=== PATIENT | female | born 1990 | race Caucasian/White ===

== ENCOUNTER 2016-05-28 19:33 | Emergency (ER) | payer MEDICAID ==
[~2016-05-28] VITALS: Ht 180.3 cm; Wt 72.6 kg
[2016-05-28 19:51] VITALS: BP 112/73
[2016-05-28] MEDS ORDERED: DiphenhydrAMINE 50mg/ml Inj IM ONE (20:30)
[2016-05-28] MEDS ORDERED: Metoclopramide 10mg/2ml Inj IM ONE (20:30)
[2016-05-28] MEDS ORDERED: Ketorolac 30mg Inj IM ONE (20:30)
[2016-05-28 21:11] VITALS: BP 119/73
--- NOTE | 2016-05-28 22:54 | Emergency Room Report ---
History of Present Illness General Chief Complaint: Headache Source: Patient Present Illness HPI The patient is a 25-year-old female presenting for migraine headaches. The patient states she has a history of migraine headaches and this feels the same but worse. She has tried Motrin and Tylenol at home which have not helped. Pain is described as a 5/10 sharp sensation to the entire head with nausea. Patient also has some photophobia. Pain is relieved with closing her eyes. The patient denies any other symptoms including neck pain or stiffness, vomiting , dizziness, blurred vision, fever, chills Allergies: Coded Allergies: No Known Allergies (Unverified , 05/28/16) Patient History Past Medical History: see triage record Pertinent Family History: none Last Menstrual Period: 01/01/15 Now: No Reviewed Nursing Documentation: PMH: Agreed, PSxH: Agreed Review of Systems All Other Systems: negative except mentioned in HPI Physical Exam Vital Signs Date Time Temp Pulse Resp B/P Pulse Ox O2 Delivery O2 Flow Rate FiO2 05/28/16 19:39 98.1 74 14 119/73 100 Room Air Sp02 EP Interpretation: reviewed, normal General Appearance: no apparent distress, alert, GCS 15, non-toxic Head: normocephalic, atraumatic Eyes: bilateral eye PERRL, bilateral eye normal inspection ENT: hearing grossly normal, normal pharynx, no angioedema, normal voice Neck: full range of motion, no bony tend, supple/symm/no masses Musculoskeletal: back normal, gait/station normal, normal range of motion, non- tender Neurologic: alert, oriented x3, responsive, motor strength/tone normal, sensory intact, speech normal Psychiatric: judgement/insight normal, memory normal, mood/affect normal, no suicidal/homicidal ideation Skin: normal color, no rash, warm/dry, well hydrated Lymphatic: no adenopathy Medical Decision Making PA Attestation Dr. Mccain is my supervising physician. Patient management was discussed with my supervising physician Diagnostic Impression: Primary Impression: Migraine headache Qualified Codes: G43.919 - Migraine, unspecified, intractable, without status migrainosus ER Course The patient is a 25-year-old female presenting for migraine headaches. Differential diagnoses include but not limited to Migraine, tension headache, cluster FARIAS, anxiety PE: No apparent distress. A&Ox4 PERRL. EOMI. Head NC/AT Normal mentation. RRR. No MRG Skin is warm and dry, no rashes. The patient is given IM Toradol, Reglan, and Benadryl and is feeling better. She will be discharged home and needs to followup with PMD and possibly neurologist if symptoms continue. ER precautions are give Last Vital Signs Date Time Temp Pulse Resp B/P Pulse Ox O2 Delivery O2 Flow Rate FiO2 05/28/16 21:11 98.1 14 119/73 100 Room Air 05/28/16 19:51 81 Status: improved Disposition: HOME, SELF-CARE Condition: Improved Referrals: [facility],REFERRING (PCP) Patient Instructions: General Headache Without Cause Additional Instructions: I discussed my findings with the patient. All questions and concerns have been answered. Treatment and medication compliance have been addressed. I advised the patient that they need to follow up with PMD in 3-5 days. Return to ED if symptoms worsen, new symptoms arise, or if needed for any reason. Patient verbalized understanding of discharge instructions. OCTAVIO BENNETT May 28, 2016 22:54
== END 2016-05-28 21:11 | disposition home or self-care (01) ==
LOC: EMR 20:00
DX: G43.909 Migraine, unspecified, not intractable, without status migrainosus (principal)
CPT/HCPCS: 96372; 99283; J1200; J1885; J2765

== ENCOUNTER 2017-02-19 16:50 | Emergency (ER) | payer MEDICAID ==
[~2017-02-19] VITALS: Ht 180.3 cm; Wt 68.0 kg
[2017-02-19 17:00] VITALS: BP 130/78
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
[2017-02-19] MEDS ORDERED: ROBAXIN-750750 MG PO (17:29)
[2017-02-19] MEDS ORDERED: MULTIVITAMINS1 EAC2 ORAL (17:29)
[2017-02-19] MEDS ORDERED: IBUPROFEN600 MG ORAL (17:29)
[2017-02-19] MEDS ORDERED: LIDODERM700 M1 TOPIC (17:30)
[2017-02-19 17:50] VITALS: BP 130/78
== END 2017-02-19 17:50 | disposition home or self-care (01) ==
LOC: EMR 17:50
DX: M54.32 Sciatica, left side (principal); M54.31 Sciatica, right side; R20.2 Paresthesia of skin; M79.1 Myalgia
CPT/HCPCS: 99284